=== PATIENT | male | born 1985 | race Hispanic/Latino ===

== ENCOUNTER 2016-05-30 07:43 | Emergency (ER) | payer OTHER ==
[~2016-05-30] VITALS: Ht 170.2 cm; Wt 68.0 kg
[~2016-05-30 07:43] MED LIST: ALBUTEROL0.09 MG/A1 INH; AMOXICILLIN500 M1 PO; AMOXICILLIN500 M3 PO; AMOXIL 875 MG875 MG PO; IBU800 MG PO; LOMOTIL 0.025 M1 TAB PO; MOTRIN600 MG PO; NASONEX17 GM NASB; PRILOSEC OTC20 MG PO; ROBITUSSIN W/CO10 ML PO; TAMIFLU 75MG75 MG PO; TESSALON PERLE100 MG PO; ULTRAM(MONOGRAP50 MG PO; ZOFRAN ODT4 MG PO; ZOFRAN4 M1 PO
[2016-05-30 07:56] VITALS: BP 110/75
[2016-05-30] MEDS ORDERED: TRAMADOL HCL50 M1 PO (08:13)
[2016-05-30] MEDS ORDERED: AMOXICILLIN500 M3 PO (08:13)
--- NOTE | 2016-05-30 08:13 | ED THROAT/DENTAL COMPLAINT ---
History of Present Illness General Chief Complaint: Sore Throat, Dental Pain Stated Complaint: TOOTH ACHE X 2 DAYS Source: patient Exam Limitations: no limitations Vital Signs & Intake/Output Vital Signs & Intake/Output Vital Signs Date Time Temp Pulse Resp B/P Pulse O2 O2 Flow FiO2 Ox Delivery Rate 05/30 0756 96.9 71 18 110/75 95 Room Air Allergies Coded Allergies: NO KNOWN ALLERGIES (06/28/11) Triage Note: C/O R LOWER TOOTH PAIN X 3 DAYS, PAIN IS RADIATING TO EAR, STATES HIS TOOTH BROKE. Triage Nurses Notes Reviewed? yes HPI: this patient is a 30-year-old male who presented to the emergency department today for evaluation of right lower tooth pain. Patient reported that, "I cracked my wisdom tooth." He reported that he does not know how it happened, but first noticed the pain approximately 2 days ago. The pain has been worsening and rates it at a 9 out of 10. The pain is sharp and throbbing. It is worse when he tries to chew. The pain is constant. He reported that the pain sometimes radiates to his jaw and up to his right ear. The patient denied any fevers, chills, difficulty swallowing, difficulty breathing, or chest pain. (MERCED BUTCHER PA-C) Reconcile Medications Amoxicillin 500 MG TABLET 1 TAB PO TID tooth fracture Tramadol HCl 50 MG TABLET 1 TAB PO BIDP PRN pain (REMBERTO SMYTH,JAKI) Past History Travel History Traveled to [place] past 21 day No Medical History Any Pertinent Medical History? see below for history Neurological: NONE EENT: NONE Cardiovascular: NONE Respiratory: NONE Gastrointestinal: NONE Hepatic: NONE Renal: NONE Musculoskeletal: NONE Psychiatric: NONE Endocrine: NONE Blood Disorders: NONE Cancer(s): NONE Other Medical Hx: abscesses History of MRSA: Yes Surgical History Surgical History: non-contributory Psychosocial History What is your primary language Georgian Tobacco Use: Current Daily Use Daily Tobacco Use Amount/Type: => 5 Cigarettes daily ETOH Use: occasional use Family History Hx Contributory? No (MERCED BUTCHER PA-C) Review of Systems Review of Systems Constitutional: Reports: no symptoms. EENTM: Reports: see HPI. Respiratory: Reports: no symptoms. Cardiovascular: Reports: no symptoms. GI: Reports: no symptoms. Musculoskeletal: Reports: no symptoms. Skin: Reports: no symptoms. Neurological/Psychological: Reports: no symptoms. All Other Systems: Reviewed and Negative (MERCED BUTCHER PA-C) Physical Exam Physical Exam Mouth/Throat: carious dentition. Fracture of right wisdom tooth noted. Tenderness to palpation over the right lower dentition. No gingival erythema or signs of abscess formation. No pharyngeal injection. No tonsillar exudates. No uvular shift. No mandibular or maxillary edema. No trismus or drooling. Comments: Well-developed well-nourished person in mild distress HEENT: Head normocephalic, moist mucous membranes Neck: Supple, no lymphadenopathy Back: Normal gait Respiratory: No respiratory distress. Speaking in full sentences Extremities: No edema, full range of motion Neuro: Alert and oriented x3 Psych: Mood affect normal, normal memory normal judgment. Skin: Warm and dry, no rash on exposed skin Core Measures ACS in differential dx? No Severe Sepsis Present: No Septic Shock Present: No (MERCED BUTCHER PA-C) Progress Differential Diagnosis: aspirated tooth, carious tooth, epiglottitis, Ludwigs angina, odontogenic abscess, jessica-tonsillar abscess, stomatitis/gingivitis, strep pharyngitis, tooth fracture Plan of Care: Current Medications Sig/Stiven Start time Last Medication Dose Stop Time Status Admin Oxycodone/ 1 TAB ONCE ONE 05/30 0815 AC Acetaminophen 05/30 0816 (Percocet) Departure Departure Disposition: HOME OR SELF CARE Condition: Stable Referrals: ALLISON SMYTH,RICH Craig (PCP/Family) Additional Instructions: As discussed, please call your dentist today to schedule an appointment. Begin the antibiotic prescribed to him today and take for its full duration. Take medication for pain as prescribed. Return to the emergency Department for any worsening symptoms or concerns. Departure Forms: Customer Survey General Discharge Information Prescriptions: Current Visit Scripts Tramadol HCl 1 TAB PO BIDP PRN pain #10 TAB Amoxicillin 1 TAB PO TID #21 TAB (MERCED BUTCHER PA-C) Departure Clinical Impression Primary Impression: Tooth fracture Qualifiers: Encounter type: initial encounter PA/BLANKET FOLDER Co-Sign Statement Statement: ED Attending supervision documentation- [] I saw and evaluated the patient. I have also reviewed all the pertinent lab results and diagnostic results. I agree with the findings and the plan of care as documented in the PA's/BLANKET FOLDER's documentation. x I have reviewed the ED Record and agree with the PA's/BLANKET FOLDER's documentation. [] Additions or exceptions (if any) to the PAs/BLANKET FOLDER's note and plan are summarized below: [] (REMBERTO SMYTH,JAKI)
== END 2016-05-30 08:19 ==
LOC: ERH 07:43
DX: S02.5XXA Fracture of tooth (traumatic), initial encounter for closed fracture (principal); X58.XXXA Exposure to other specified factors, initial encounter